=== PATIENT | female | born 1955 | race African-American/Black ===

== ENCOUNTER → 2018-04-22 | Outpatient (CLI) | payer BC ==
[~2018-04-22] VITALS: Ht 170.2 cm; Wt 69.0 kg
[~2018-04-22] MED LIST: AMLO-511 PO; ASPI81 PO; CHL25 PO; IRBE150T51 PO; MULT1TAB70 PO
[2018-04-22 11:04] VITALS: BP 137/84
== END | disposition home or self-care (01) ==
LOC: SRCNTR 10:43
PROVIDERS: ATTEND Internal Medicine Cardiovascular Disease
DX: I11.9 Hypertensive heart disease without heart failure (principal)
CPT/HCPCS: G0463

== ENCOUNTER → 2018-08-10 | Outpatient (CLI) | payer BC ==
[~2018-08-10] VITALS: Ht 170.2 cm; Wt 67.0 kg
[2018-08-10 11:52] VITALS: BP 136/72
== END | disposition home or self-care (01) ==
LOC: SRCNTR 11:09
PROVIDERS: ATTEND Internal Medicine Cardiovascular Disease
DX: I11.9 Hypertensive heart disease without heart failure (principal)
CPT/HCPCS: G0463